=== PATIENT | male | born 1980 | race Caucasian/White ===

== ENCOUNTER 2023-05-30 16:22 | Emergency (ER) | payer SELFPAY ==
[~2023-05-30] VITALS: Ht 167.6 cm; Wt 67.1 kg
[2023-05-30] MEDS ORDERED: PAXIL10 MG PO (16:33)
[2023-05-30] MEDS ORDERED: LISINOPRIL20 MG PO (16:33)
[2023-05-30] MEDS ORDERED: NORVASC10 MG PO (16:34)
[2023-05-30 17:06] LABS: BASO # 0.1 10*3/uL (0.0-0.1); BASO % 0.4 % (0.0-1.0); EOS # 0.1 10*3/uL (0.0-0.4); EOS % 0.5 % (1.0-4.0); HEMATOCRIT 50.1 % (42.0-52.0); LYMPH # 4.2 10*3/uL (1.3-4.4); LYMPH % 26.9 % (27.0-41.0); MEAN CELL VOLUME 91.9 fl (80.0-94.0); MEAN CORPUSCULAR HGB CONC 33.7 g/dl (33.0-37.0); MEAN PLATELET VOLUME 8.8 fl (9.6-12.3); MONO # 0.7 10*3/uL (0.1-1.0); MONO % 4.6 % (3.0-9.0); NEUT # 10.3 10*3/uL (2.3-7.9); NEUT % 66.3 % (47.0-73.0); PLATELET COUNT AUTOMATED 484 10*3/uL (130-400); RED BLOOD COUNT 5.45 10*6/uL (4.50-5.90); RED CELL DISTRI WIDTH 13.6 % (0-14.5); WHITE BLOOD COUNT 15.6 10*3/uL (4.8-10.8)
[2023-05-30 17:34] LABS: ALKALINE PHOSPHATASE 57 U/L (46-116); BUN 11 mg/dl (9-23); CHLORIDE 101 mmol/L (98-107); LIPASE 36 U/L (12-53); POTASSIUM 3.6 mmol/L (3.4-5.1); SGPT/ALT 12 U/L (5-49); TOTAL PROTEIN 5.9 gm/dL (6.0-8.0)
== END 2023-05-30 19:42 | disposition left against medical advice (07) ==
LOC: ED 16:22
PROVIDERS: Physician Assistant Medical
DX: R06.02 Shortness of breath (principal); R05.9 Cough, unspecified; R09.81 Nasal congestion; R11.2 Nausea with vomiting, unspecified; R51.9 Headache, unspecified; K21.9 Gastro-esophageal reflux disease without esophagitis; F41.0 Panic disorder [episodic paroxysmal anxiety]; F41.9 Anxiety disorder, unspecified; I10 Essential (primary) hypertension; Z20.822 Contact with and (suspected) exposure to COVID-19; Z53.29 Procedure and treatment not carried out because of patient's decision for other reasons

== ENCOUNTER 2023-10-06 19:15 | Emergency (ER) | payer SELFPAY ==
[~2023-10-06] VITALS: Ht 167.6 cm; Wt 77.6 kg
[~2023-10-06 19:15] MED LIST: LISINOPRIL20 MG PO; NORVASC10 MG PO; PAXIL10 MG PO
[2023-10-06 19:30] LABS: HEMATOCRIT 41.3 % (42.0-52.0); MEAN CELL VOLUME 92.4 fl (80.0-94.0); MEAN CORPUSCULAR HGB CONC 34.6 g/dl (33.0-37.0); MEAN PLATELET VOLUME 9.5 fl (9.6-12.3); PLATELET COUNT AUTOMATED 269 10*3/uL (130-400); RED BLOOD COUNT 4.47 10*6/uL (4.50-5.90); RED CELL DISTRI WIDTH 13.2 % (0-14.5); WHITE BLOOD COUNT 12.5 10*3/uL (4.8-10.8)
[2023-10-06 19:32] LABS: MANUAL DIFF REFLEX YES
[2023-10-06] MEDS ORDERED: IOHEXOL 350 MG/ML 100 ML VIAL IV ONE (19:40)
[2023-10-06] MEDS ORDERED: SODIUM CHLORIDE 0.9% 100 ML BAG IV ONE (19:40)
[2023-10-06 19:41] LABS: ACT PARTIAL THROMBO TIME 29.5 SECONDS (20.0-32.1)
[2023-10-06 20:08] LABS: BUN 6 mg/dl (9-23); CHLORIDE 104 mmol/L (98-107); POTASSIUM 2.9 mmol/L (3.4-5.1); SGPT/ALT 53 U/L (5-49); TOTAL PROTEIN 5.4 gm/dL (6.0-8.0)
[2023-10-06 20:18] LABS: ALKALINE PHOSPHATASE 62 U/L (46-116)
[2023-10-06 20:25] LABS: ATYPICAL LYMPHS 1 % (0-0); BASOPHILS 1 % (0-1); PLATELET SUFFICIENCY NORMAL (NORMAL); TOTAL CELLS COUNTED 100 #CELLS
[2023-10-06 20:26] LABS: ROULEAUX SLIGHT
[2023-10-06] MEDS ORDERED: SODIUM CHLORIDE 0.9% 1,000 ML IV ONE (20:35)
[2023-10-06] MEDS ORDERED: POTASSIUM CHLORIDE IN WATER 100 ML IV SCH (21:00)
== END 2023-10-06 22:54 | disposition home or self-care (01) ==
LOC: ED 19:15
PROVIDERS: Internal Medicine
DX: F41.9 Anxiety disorder, unspecified (principal); E87.6 Hypokalemia; R07.89 Other chest pain; E87.1 Hypo-osmolality and hyponatremia; I10 Essential (primary) hypertension; F17.200 Nicotine dependence, unspecified, uncomplicated

== ENCOUNTER 2023-10-17 03:04 | Emergency (ER) | payer SELFPAY ==
[~2023-10-17] VITALS: Ht 170.1 cm; Wt 72.6 kg
[2023-10-17] MEDS ORDERED: IOHEXOL 300 MG/ML 100 ML VIAL IV ONE (03:30)
[2023-10-17 03:44] LABS: BASO # 0.1 10*3/uL (0.0-0.1); BASO % 0.4 % (0.0-1.0); EOS # 0.5 10*3/uL (0.0-0.4); EOS % 2.8 % (1.0-4.0); HEMATOCRIT 42.2 % (42.0-52.0); LYMPH # 4.2 10*3/uL (1.3-4.4); LYMPH % 25.7 % (27.0-41.0); MEAN CORPUSCULAR HGB 31.5 pg (27.0-31.0); MEAN CORPUSCULAR HGB CONC 33.2 g/dl (33.0-37.0); MEAN PLATELET VOLUME 9.4 fl (9.6-12.3); MONO # 1.3 10*3/uL (0.1-1.0); MONO % 8.1 % (3.0-9.0); NEUT # 10.1 10*3/uL (2.3-7.9); NEUT % 62.6 % (47.0-73.0); PLATELET COUNT AUTOMATED 268 10*3/uL (130-400); RED BLOOD COUNT 4.44 10*6/uL (4.50-5.90); RED CELL DISTRI WIDTH 13.6 % (0-14.5); WHITE BLOOD COUNT 16.2 10*3/uL (4.8-10.8)
[2023-10-17 03:58] LABS: BUN 9 mg/dl (9-23); CHLORIDE 107 mmol/L (98-107); POTASSIUM 3.9 mmol/L (3.4-5.1)
[2023-10-17] MEDS ORDERED: Ampicillin Sodium/Sulbactam 3 GM in SODIUM CHLORIDE 0.9% 100 ML IV ONE (06:20)
[2023-10-17] MEDS ORDERED: AMOXICILLIN 500 MG CAP PO ONE (06:25)
[2023-10-17] MEDS ORDERED: Ketorolac Tromethamine 30 MG/ML VIAL IV ONE (06:25)
[2023-10-17] MEDS ORDERED: AMOXICILLIN500 M2 PO (06:25)
[2023-10-17] MEDS ORDERED: NAPROSYN500 MG PO (06:26)
== END 2023-10-17 06:40 | disposition home or self-care (01) ==
LOC: ED 03:04
PROVIDERS: Emergency Medicine
DX: K04.7 Periapical abscess without sinus (principal); I10 Essential (primary) hypertension; F41.9 Anxiety disorder, unspecified; Z79.899 Other long term (current) drug therapy

== ENCOUNTER 2024-01-09 19:41 | Emergency (ER) | payer SELFPAY ==
[~2024-01-09] VITALS: Ht 167.6 cm; Wt 77.1 kg
[~2024-01-09 19:41] MED LIST changes: +AMOXICILLIN500 M2 PO; +NAPROSYN500 MG PO
[2024-01-09] MEDS ORDERED: METHOCARBAMOL 500 MG TAB PO ONE (20:35)
[2024-01-09] MEDS ORDERED: Ketorolac Tromethamine 60 MG/2 ML VIAL IM ONE (20:35)
[2024-01-09] MEDS ORDERED: NAPROXEN250 MG PO (20:41)
[2024-01-09] MEDS ORDERED: METHOCARBAMOL750 M1 PO (20:41)
== END 2024-01-09 20:47 | disposition home or self-care (01) ==
LOC: ED 19:41
DX: S29.012A Strain of muscle and tendon of back wall of thorax, initial encounter (principal); Z79.899 Other long term (current) drug therapy; W22.8XXA Striking against or struck by other objects, initial encounter; Y93.89 Activity, other specified; Y92.89 Other specified places as the place of occurrence of the external cause; Y99.8 Other external cause status